=== PATIENT | male | born 1990 | race Caucasian/White ===

== ENCOUNTER 2016-04-11 07:49 | Emergency (ER) | payer MEDICAID ==
[~2016-04-11] VITALS: Wt 92.0 kg
[~2016-04-11 07:49] MED LIST: NAPR-260 PO; PEN500 PO; PRED20TA PO
[2016-04-11] MEDS ORDERED: NPH10OT LEFT EAR (08:53)
[2016-04-11] MEDS ORDERED: AZIT250T94 PO ×2 (08:53→08:54)
[2016-04-11] MEDS ORDERED: NEOMYC/POLYMYX/HC 10 ML OTIC SUSP LEFT EAR STA (08:54)
[2016-04-11] MEDS ORDERED: NAPR-688 PO (08:58)
[2016-04-11] MEDS ORDERED: AZITHROMYCIN 250 MG TAB PO ONE (09:00)
[2016-04-11] MEDS ORDERED: NAPROXEN 500 MG TAB PO ONE (09:00)
--- NOTE | 2016-04-11 09:16 | ERD ---
ER Documentation Chief Complaint Date/Time DATE: 04/11/16 TIME: 09:07 Chief Complaint LEFT EAR PAIN FOR FEW DAYS. NO COUGH OR CONGESTION HPI This is a 25-year-old male presenting to the emergency room complaining of left ear pain for 4 days. Patient denies sore throat, fevers, cough. Patient denies any foreign body. Patient denies any trauma ROS All systems reviewed and are negative except as per history of present illness. Medications Home Meds Active Scripts Naproxen* (Naproxen*) 500 Mg Tablet, 500 MG PO BID Y for PAIN, #20 TAB Prov:SREEDHAR HUERTA PA-C 04/11/16 Azithromycin* (Zithromax*) 250 Mg Tablet, 250 MG PO DAILY for 4 Days, TAB Prov:SREEDHAR HUERTA PA-C 04/11/16 Neomycin/Polymyxin/Hydrocort* (Cortisporin* Otic) 10 Ml Susp, 4 DROP LEFT EAR QID for 7 Days, EA Prov:SREEDHAR HUERTA PA-C 04/11/16 Prednisone (Prednisone) 20 Mg Tablet, 40 MG PO DAILY, #10 TAB Prov:AMY CHEEMA 06/17/15 Naproxen* (Naprosyn*) 500 Mg Tablet, 500 MG PO BID, #20 TAB Prov:AMY CHEEMA 06/17/15 Penicillin V Potassium* (Penicillin V K*) 500 Mg Tab, 500 MG PO Q6, #30 TAB Prov:AMY CHEEMA 06/17/15 Allergies Allergies: Coded Allergies: No Known Drug Allergies (Verified Allergy, Unknown, 06/17/15) PMhx/Soc Medical and Surgical Hx: pt denies Medical Hx, pt denies Surgical Hx Hx Alcohol Use: No Hx Substance Use: No Hx Tobacco Use: No Physical Exam Vitals Vital Signs Date Time Temp Pulse Resp B/P Pulse Ox O2 Delivery O2 Flow Rate FiO2 04/11/16 07:51 98.8 77 21 160/81 98 Physical Exam Const: Well-developed well-nourished no acute distress Head: Atraumatic Eyes: Normal Conjunctiva ENT: Normal Nose and Mouth. Left tympanic membrane is not visualized, negative tragus tenderness, mild tenderness with pinna pull Left tympanic membrane is obscured with white cottage-cheese like discharge Neck: Full range of motion..~ No meningismus. Resp: Clear to auscultation bilaterally Cardio: Regular rate and rhythm, no murmurs Abd: Soft, non tender, non distended. Normal bowel sounds Skin: No petechiae or rashes Back: No midline or flank tenderness Ext: No cyanosis, or edema Neur: Awake and alert Psych: Normal Mood and Affect Results 24 hrs Current Medications Medications (Trade) Dose Ordered Sig/Ming Route PRN Reason Start Time Stop Time Status Last Admin Dose Admin Azithromycin (Zithromax) 500 mg ONCE ONCE PO 04/11/16 09:00 2 09:01 DC Naproxen (Naprosyn) 500 mg ONCE ONCE PO 04/11/16 09:00 2 09:01 DC Neomycin/ Polymyxin/ Hydrocortisone (Cortisporin Otic Susp) 4 drop ONCE STAT LEFT EAR 04/11/16 08:54 2 08:56 DC Procedures/MDM This is a 25-year-old male presenting to the emergency room complaining of left ear pain for the past 4 days. I have a low suspicion for mastoiditis or ruptured tympanic membrane. On examination patient had an unusual white discharge in the left ear canal membrane obscuring the tympanic membrane, he had tenderness inside his ear with pulling of the pinna, no tragus tenderness. With alligator forceps I have tried to remove the white discharge, some white and black discharge was removed and white and black discharge was still in the external canal obscuring the tympanic membrane. I have consulted my supervising physician Dr. Dubon who came and evaluated the patient with me, he advised to do an ear irrigation. In the ED, ear lavage was done in the left ear by a nurse, most of the white and black discharge was removed which had a foul odor to it. I have came to reassess the patient, patient had some white discharge in the ear canal obscuring the tympanic membrane. I have consulted my supervising physician Dr. Wu goes again who evaluated the patient again as well. advised that patient will need to follow-up with an ENT specialist since the appearance was unusual. Patient states he will be able to follow-up with his primary care physician today for an ENT specialist referral. also advised to give patient z-pack and place him on Cortisporin for otitis externa. Patient received first dose of azithromycin in the ED and Cortisporin drops. He was given naproxen for pain. I have discussed that if he is unable to follow-up with primary care to follow-up at [facility] for further evaluation. Strict precautions were given for patient to return to the ER for any worsening signs or symptoms. Patient understands and agrees with this plan Departure Diagnosis: Primary Impression: Left ear pain Condition: Fair Patient Instructions: External Ear Infection (Adult) Referrals: NO PRIMARY,CARE PHYSICIAN (PCP) [facility] Usted se cooper hecho un examen mdico de control que le indica que no est en j luis condicin que requiera tratamiento urgente en el Departamento de Emergencia. Un estudio ms profundo y el tratamiento de velez condicin pueden esperar sin ningn riesgo hasta que usted sea atendida/o en el consultorio de velez mdico o j luis cl hazel. Es responsabilidad suya arreglar j luis leonid para el seguimiento del cristal. MANEJO DE CONDICIONES NO URGENTES EN EL FUTURO 1) Si usted tiene un mdico de atencin primaria: Usted debera llamar a velez mdico de atencin primaria antes de venir al departamento de emergencia. Despus de las horas de consultorio, velez doctor o velez asociado/a est disponible por telfono. El mdico o enfermero de noelle en el servicio telefnico puede asesorarle por drea medio para atender el problema, o cristal contrario se puede programar j luis leonid. 2) Si usted no tiene un mdico de atencin primaria: Llame al mdico o clnica de referencia que aparece abajo suzy las horas de consultorio para hacer j luis leonid para que le vean. CLINICAS: [facility] [phone] [address] [facility] 551 [phone] [facility] [phone] [facility] [phone] [facility] [phone] [address] [facility]. [phone] [address] [facility] () Usted se cooper hecho un examen mdico de control que le indica que no est en j luis condicin que requiera tratamiento urgente en el Departamento de Emergencia. Un estudio ms profundo y el tratamiento de velez condicin pueden esperar sin ningn riesgo hasta que usted sea atendida/o en el consultorio de velez mdico o j luis cl hazel. Es responsabilidad suya arreglar j luis leonid para el seguimiento del cristal. MANEJO DE CONDICIONES NO URGENTES EN EL FUTURO 1) Si usted tiene un mdico de atencin primaria: Usted debera llamar a velez mdico de atencin primaria antes de venir al departamento de emergencia. Despus de las horas de consultorio, velez doctor o velez asociado/a est disponible por telfono. El mdico o enfermero de noelle en el servicio telefnico puede asesorarle por drea medio para atender el problema, o cristal contrario se puede programar j luis leonid. 2) Si usted no tiene un mdico de atencin primaria: Llame al mdico o condado institucions de referencia que aparece abajo suzy las horas de consultorio para hacer j luis leonid para que le vean. SI USTED NO PUEDE PAGAR PARA ZACHERY UN MEDICO puede ir a: [facility] [address] [place] [address] [facility] [address] [place] [address] [facility] [address] [place] [address] [facility] [address] [place], [place] [id number] Additional Instructions: Visite a velez mdico maana para un EXAMEN.Regrese a estas instalaciones si no se mejora coco esperbamos o coco le dijimos. Regrese a estas instalaciones si no se mejora coco esperbamos o coco le dijimos. Specialist:Usted tiene j luis condicin mdica que requiere que rafa a un especialista HOY. POR FAVOR,CON VELEZ SEGUIMIENTO DE PRIMARIA PHSICIAN refferal. SI USTED NO TIENE UN MDICO GENERAL Y / O USTED NO PUEDE PAGAR zachery a un mdico, los siguientes kelley RECURSOS sido suministrado a usted. ES VELEZ RESPONSABILIDAD PARA SER VISTOS POR EL ESPECIALISTA: County:Ir a alguna de las siguientes hospitales en los prximos 1-2 hsieh: [facility] [address] [place] [address] [facility] [address] [place] [address] [facility] [address] [place] [address] [place] toda la medicina sallie y coco se le indic. SREEDHAR HUERTA PA-C Apr 11, 2016 09:16
[2016-04-11 09:35] VITALS: TEMP 98.2
== END 2016-04-11 09:36 | disposition home or self-care (01) ==
LOC: FTE 07:49
DX: H92.02 Otalgia, left ear (principal); H61.22 Impacted cerumen, left ear
CPT/HCPCS: 69210; Z7502; Z7610